=== PATIENT | male | born 1960 | race Caucasian/White ===

== ENCOUNTER → 2016-09-18 | Outpatient (CLI) | payer OTHER ==
[2016-09-18 13:43] LABS: BASO % 0 % (0-3); EOS % 1 % (0-3); HEMATOCRIT 46.8 % (39.0-53.0); HEMOGLOBIN 15.8 g/dL (13.0-17.5); LYMPH # 1.6 x10^3/uL (1.0-4.8); LYMPH % 23 % (24-48); MEAN CORPUSCULAR HEMOGLOBIN 30 pg (25-35); MEAN CORPUSCULAR HGB CONC 34 g/dL (31-37); MEAN CORPUSCULAR VOLUME 89 fL (79-100); MONO % 10 % (0-9); NEUT % 65 % (31-73); PLATELET COUNT 252 x10^3/uL (140-400); RED BLOOD COUNT 5.25 x10^6/uL (4.30-5.70); RED CELL DISTRIBUTION WIDTH 12.7 % (11.5-14.5); WHITE BLOOD COUNT 6.9 x10^3/uL (4.0-11.0)
[2016-09-18 14:01] LABS: ALBUMIN 4.4 g/dL (3.4-5.0); ALBUMIN/GLOBULIN RATIO 1.1 (1.0-1.7); CALCIUM 9.8 mg/dL (8.5-10.1); CREATININE 0.9 mg/dL (0.7-1.3); POTASSIUM 4.4 mmol/L (3.5-5.1); TOTAL BILIRUBIN 0.7 mg/dL (0.2-1.0); TOTAL PROTEIN 8.5 g/dL (6.4-8.2)
[2016-09-18 14:03] LABS: CHOLESTEROL/HDL RATIO 5.7
== END | disposition home or self-care (01) ==
LOC: LAB 13:20
PROVIDERS: ATTEND Family Medicine
DX: Z12.5 Encounter for screening for malignant neoplasm of prostate (principal); I10 Essential (primary) hypertension
CPT/HCPCS: 36415; 80053; 80061; 85027; G0103

== ENCOUNTER → 2016-12-25 | Outpatient (CLI) | payer OTHER ==
--- NOTE | 2016-12-25 11:47 | KCIC ---
MR LUMBAR SPINE Indication: Low back pain and right lower extremity radiculopathy Technique: Sagittal T2, sagittal STIR, and sagittal T1-weighted images were obtained. Additional axial T1 and T2 weighted imaging was also performed. FINDINGS: There is grade 1 anterolisthesis of L4 and L5. Alignment is otherwise within normal limits. There is no compression fracture or deformity. Overall bone marrow signal is within normal limits. The conus terminates normally at the level of T12. Visualized intra-abdominal contents are within normal limits. L5-S1 there is moderate disc height loss. There is also mild facet hypertrophy. The combination of these findings result in osteophyte encroachment into the foramen with moderate bilateral foraminal narrowing. Correlate for possible L5 radiculopathy symptoms. At L4-L5 there is moderate facet arthropathy with grade 1 degenerative anterolisthesis. There is also a central disc protrusion. Comminution of these findings results in moderate to severe central spinal stenosis. There is also moderate bilateral foraminal stenosis worse on the right an severe right lateral recess stenosis. Correlate for right L4 or L5 radiculopathy symptoms. At L3-L4 there is moderate disc height loss and a small broad-based disc bulge but no spinal stenosis. At L2-L3 there is no spinal stenosis. IMPRESSION: Degenerative disc and facet disease greatest at L4-L5 where there is grade 1 degenerative anterolisthesis and a disc protrusion which results in [id number] central spinal stenosis and also right foraminal lateral recess stenosis. This seems most probable for right L4 or L5 radiculopathy symptoms. Moderate bilateral foraminal stenosis at L5-S1. Other less severe degenerative change is present as above. Electronically signed by: Angel Wick MD (12/25/2016 11:44 AM)
== END | disposition home or self-care (01) ==
LOC: KCIC MRI 10:34
PROVIDERS: ATTEND Family Medicine
DX: M48.07 Spinal stenosis, lumbosacral region (principal); M54.16 Radiculopathy, lumbar region; M54.40 Lumbago with sciatica, unspecified side
CPT/HCPCS: 72148

== ENCOUNTER → 2017-01-11 | Outpatient (CLI) | payer OTHER ==
[~2017-01-11] MED LIST: ACET325T9 PO; IOHEXOL 180 MG/ML 10 ML VIAL. ONE; LISI-334 PO; NAPR220C4 PO; TADA5TAB PO; methylPREDNISolone ACETATE 40 MG/ML VIAL. ONE; methylPREDNISolone ACETATE 80 MG/ML VIAL. ONE
--- NOTE | 2017-01-12 01:35 | PAIN ---
DATE OF SERVICE: 01/11/2017 INITIAL CONSULTATION CHIEF COMPLAINT: Low back and right lower extremity pain. HISTORY OF PRESENT ILLNESS: This is a 56-year-old male who presents with history of pain since about middle of 10/2016. It is not a result of any specific injury or accident he is aware of, but he was using his inversion table as he has had some low back pain in the past, was getting off of the table and twisted his back to some extent and the pain became much worse in the low back, radiating into the right lower extremity. Initially, it was quite extreme and severe, but over the last few weeks, it has decreased in severity. It is still present and still rated as a 6 on a scale of 10 currently. It is much improved from where it was in the middle of 10/2016. The patient reports he has been taking Aleve and Tylenol, which help. He has also had some chiropractic treatment with this and is doing the inversion table still and doing some exercises daily. The patient reports it is an aching pain and numbness with radiating pain into the right lower extremity, intermittent in intensity, but always present, radiating from the low back and the right posterior gluteus, lateral thigh, anterior thigh, posterior, lateral and medial lower leg to the ankle and sometimes into the sole of the foot. The patient reports his disability rating from 0 to 10, 10 being the worst, is a 5 with family and home responsibilities and recreation, 3 with social activity and sexual behavior, 6 with occupation and life support activities, and 2 with self-care activities. The patient reports it is awakening him from sleep about 2-3 times at night, especially when he lies on his right side. It does not affect his bowel or bladder control, but it does affect his ability to walk and stand. It is much worse with standing and walking, better with sitting or lying down when he stays off his right side. The patient reports no symptoms on the left side, no complete loss of motor function, but significant fatigability with the right leg with activity, especially walking. PAST MEDICAL HISTORY: Significant for hearing loss, parathyroid syndrome, hypertension, pericarditis, viral meningitis, arthritis. PAST SURGICAL HISTORY: Previous surgeries include undescended testicle in 1965; in 1964, umbilical hernia repair; in 1977, tonsillectomy; in 1995, left anterior cruciate ligament repair; in 2001, cholecystectomy; in 2008, parathyroid tumor excision. CURRENT MEDICATIONS: Include acetaminophen, Aleve, lisinopril, and Cialis. ALLERGIES: THE PATIENT IS ALLERGIC TO IV CONTRAST DYE. HE HAD A REACTION A CHILD DURING AN IVP, BUT HAS HAD SEVERAL INJECTIONS OF IV DYE SINCE THEN WITHOUT ANY DIFFICULTIES OR REACTIONS BY HIS REPORT. FAMILY HISTORY: Significant for hypertension and heart disease. SOCIAL HISTORY: The patient drinks alcohol 2-3 times a week on an average. He does not smoke. He is , lives with his spouse. 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 REVIEW OF SYSTEMS: The patient's review of systems is positive for those items mentioned in the history of present illness. All systems are reviewed and otherwise negative. It is complete, full and well documented on the patient's chart. PHYSICAL EXAMINATION: VITAL SIGNS: Today, the patient's blood pressure is /104, pulse 70, respirations 18, temperature 97.9 degrees Fahrenheit. Height is 6 feet 3 inches, weight is 229 pounds. GENERAL: The patient is awake, alert, oriented, appropriate, very pleasant demeanor. The patient is accompanied by his spouse. HEENT: Shows normocephalic and atraumatic. Extraocular movements are intact and symmetrical. Oral cavity shows mucous membranes are moist and pink. Dentition is intact. NECK: Shows anterior throat supple without palpable lymphadenopathy noted. Swallow reflex is symmetrical. CHEST: Shows normal on inspection. Breath sounds are clear to auscultation bilaterally. HEART: Shows S1 and S2 clear. ABDOMEN: Soft, nontender, nondistended. No palpable organomegaly. No rebound or guarding demonstrated. BACK: Shows spine grossly in the midline. Normal-appearing cervical lordotic curvature, thoracic kyphotic curvature, and lumbar lordotic curvature. The patient's paraspinous musculature in the lumbar distribution shows symmetrical on inspection; with palpation, it shows some moderate tenderness with palpation bilaterally, but only diffusely in the middle and low lumbar distribution, slightly more on the right than the left, but it appears roughly symmetrical. Muscle girth is normal with palpation. No atrophy or hypertrophy. The patient shows no tenderness over the spinous processes, sacrum or sacroiliac regions. The patient shows good rotational motion bilaterally in the lumbar spine, both laterally greater than 10 degrees right and left as well as extension greater than 10 degrees, forward flexion to 45 degrees without exacerbation of pain. EXTREMITIES: Lower extremities show deep tendon reflexes at 2+ in the patellar and 1+ tendo calcaneus tendons and equal. Motor exam is strong with 5/5 dorsiflexion, extension, quadriceps and hamstring flexion and symmetrical. Slight decrease in sharp and dull discrimination of the right foot on the dorsum and otherwise intact sharp and dull discrimination bilaterally. Peripheral pulses are 1+ posterior tibial and dorsalis pedis pulses. No peripheral edema is noted. No clubbing. No cyanosis. Lower extremities are warm and dry to touch, equal in color and appearance. Straight leg raise noted to be slightly positive on the right at about 40 degrees, decreased with knee flexion, left side is negative. Gaenslen's and Rafael's maneuvers are negative bilaterally as well. The patient is able to stand, stand on his toes without difficulty or loss of balance, able to heel and toe walk for several steps without difficulty. He is walking with a normal-appearing gait for short distance in the office without any assistive devices such as canes or walkers. IMPRESSION: 1. This is a 56-year-old male with approximately 2-month history of increasing pain in the low back and right lower extremity, slightly decreased on its own since initial presentation in 10/2016, but with significant radicular pains in the right leg. 2. MRI scan of the lumbar spine as noted with L4-L5 moderate facet hypertrophy and grade 1 degenerative anterolisthesis, central disk protrusion, resulting in [id number] central spinal stenosis and moderate bilateral foraminal stenosis, worse on the right and severe right lateral recess stenosis. 3. History of arthritis. 4. History of hypertension and pericarditis. PLAN: Options were discussed with the patient including conservative medical management, continued physical therapies, interventional technique. He would like to pursue with interventional techniques. We discussed a lumbar epidural steroid injection using description as well as anatomical models to describe the procedure. Risks were then discussed including but not limited to bleeding, infection, possibility of epidural hematoma, subsequent neurologic compromise, dural puncture, headaches, spinal cord and/or nerve damage, side effects of steroid medication and poor results regarding pain control. The patient understands and wishes to proceed. The patient will return to the clinic in approximately 2 weeks for followup. He was counseled as to return appointment, activity level and side effects to be aware of. DIAGNOSIS: Lumbar radiculopathy with lumbar spinal stenosis and degenerative disk disease. PROCEDURES: Lumbar epidural steroid injection in translaminar approach at the L4-L5 level using C-arm fluoroscopic guidance under sterile prep and drape using local anesthetic. MEDICATION INJECTED: Depo-Medrol 120 mg plus 10 mL of preservative-free normal saline and 2 mL of Isovue for contrast. CONDITION AT DISCHARGE: Stable. The patient tolerated the procedure well, had no complications. DESTINEE MURPHY MD DR: CONSTANTINO/cira JOB#: [id number] / [id number] JEFFY Delgado MD
== END | disposition home or self-care (01) ==
LOC: PNCL 07:59
PROVIDERS: ATTEND Anesthesiology
DX: M51.16 Intervertebral disc disorders with radiculopathy, lumbar region (principal); M48.06 Spinal stenosis, lumbar region; H91.90 Unspecified hearing loss, unspecified ear; E21.5 Disorder of parathyroid gland, unspecified; I10 Essential (primary) hypertension; I31.9 Disease of pericardium, unspecified; A87.9 Viral meningitis, unspecified; M19.90 Unspecified osteoarthritis, unspecified site; Z90.49 Acquired absence of other specified parts of digestive tract
CPT/HCPCS: 62323; J1030; J1040

== ENCOUNTER → 2017-02-05 | Outpatient (CLI) | payer OTHER | END | disposition home or self-care (01) | LOC: PNCL 14:41 | PROVIDERS: ATTEND Anesthesiology | DX: M51.16 Intervertebral disc disorders with radiculopathy, lumbar region (principal); M48.06 Spinal stenosis, lumbar region | CPT/HCPCS: 62323; J1030; J1040 ==

== ENCOUNTER → 2017-03-20 | Outpatient (CLI) | payer OTHER ==
--- NOTE | 2017-03-20 12:03 | PAIN ---
DATE OF SERVICE: 03/20/2017 PROGRESS NOTE FOR PAIN CLINIC DIAGNOSES: Lumbar radiculopathy with lumbar degenerative disk disease and lumbar spinal stenosis. HISTORY OF PRESENT ILLNESS: The patient is a 56-year-old male who returns for followup status post lumbar epidural steroid injection x 2, last seen 02/05/2017. The patient did very well and reports about 90% improvement for the first 3 weeks or so. Then the pain is beginning to return gradually in the low back and right lower extremity, as it was previously in the low back, posterior gluteus, right lateral thigh, medial thigh and anterior thigh and also some weakness, numbness and tingling in the right leg, with radiation into the lateral thigh and medial thigh below the knee. The patient reports it is a 7 on a scale of 10 at its worst, 3 and sounds like a 5. It is aching, tingling, radiating in the right leg. Again improved twice with repeat results with decrease in pain, but returning after about 3 weeks to near baseline level. The patient reports no new motor or sensory deficits, no new bowel or bladder incontinence or other complaints. PHYSICAL EXAMINATION: VITAL SIGNS: The patient's blood pressure is 150/101, pulse 77, respirations are 18 and temperature 97.9 degrees Fahrenheit. Weight is 225 pounds, height is 6 feet 3 inches. GENERAL: The patient is awake, alert, oriented and appropriate, with very pleasant demeanor. HEENT EXAMINATION: Head shows normocephalic, atraumatic. Extraocular movements are intact and symmetrical. Oral cavity, mucous membranes are moist and pink. Dentition is intact. NECK: Shows anterior throat supple, without palpable lymphadenopathy noted. Swallow reflex is symmetrical. CHEST: Shows normal on inspection. Breath sounds clear to auscultation bilaterally. HEART: Shows S1 and S2 clear. ABDOMEN: Soft, nontender and nondistended. No palpable organomegaly. No rebound or guarding demonstrated. BACK: Shows spine grossly midline. Lumbar paraspinous muscle shows symmetrical with inspection. On palpation, shows some moderate tenderness with palpation in the bilateral paraspinous musculature, but only diffusely. No tenderness over the sacrum or sacroiliac regions. The patient shows good rotational motion of the lumbar spine, both laterally as well as extension and flexion. LOWER EXTREMITIES: Show deep tendon reflexes 2+ in the patellar and tendo calcaneus tendons are 1+. Motor exam is strong with 5/5 dorsiflexion, extension, quadriceps and hamstring flexion and equal. The patient's gait is normal, without significant favoring and not using any assistive devices. Options were discussed with the patient. The patient's old chart was reviewed as his current medication regimen updated. Current review of systems updated today as well. We will proceed with third in the series of lumbar epidural steroid injection with fluoroscopic guidance. Risks were again discussed including, but not limited to, bleeding, infection, possibility of epidural hematoma, subsequent neurologic compromise, dural puncture, headaches, spinal cord and/or nerve damage, side effects of steroid medication and poor results regarding pain control. The patient understands and wishes to proceed. The patient will return to the clinic in approximately 2 weeks for followup, was counseled on return appointment, activity level and side effects to be aware of. DIAGNOSES: Lumbar radiculopathy with lumbar spinal stenosis and lumbar degenerative disk disease. PROCEDURES: Lumbar epidural steroid injection in translaminar approach at the L4-L5 level using C-arm fluoroscopic guidance under sterile prep and drape using local anesthetic. MEDICATIONS INJECTED: A total of 120 mg of Depo-Medrol plus 10 mL of preservative-free normal saline and 2 mL Isovue for contrast. CONDITION AT DISCHARGE: Stable. The patient tolerated the procedure well, had no complications. DESTINEE MURPHY MD DR: CONSTANTINO/cira JOB#: [id number] / [id number]
== END | disposition home or self-care (01) ==
LOC: PNCL 08:36
PROVIDERS: ATTEND Anesthesiology
DX: M51.16 Intervertebral disc disorders with radiculopathy, lumbar region (principal); M48.06 Spinal stenosis, lumbar region
CPT/HCPCS: 62323; J1030; J1040

== ENCOUNTER → 2018-06-11 | Outpatient (CLI) | payer OTHER ==
[~2018-06-11] MED LIST changes: -IOHEXOL 180 MG/ML 10 ML VIAL. ONE; -methylPREDNISolone ACETATE 40 MG/ML VIAL. ONE; -methylPREDNISolone ACETATE 80 MG/ML VIAL. ONE
[2018-06-11 09:42] LABS: ALBUMIN 4.1 g/dL (3.4-5.0); ALBUMIN/GLOBULIN RATIO 1.2 (1.0-1.7); CALCIUM 8.9 mg/dL (8.5-10.1); CHOLESTEROL/HDL RATIO 4.7; CREATININE 0.8 mg/dL (0.7-1.3); GFR 99.3; POTASSIUM 4.1 mmol/L (3.5-5.1); TOTAL BILIRUBIN 0.5 mg/dL (0.2-1.0); TOTAL PROTEIN 7.4 g/dL (6.4-8.2)
[2018-06-11 09:44] LABS: BASO % 0 % (0-3); EOS # 0.1 x10^3/uL (0.0-0.7); EOS % 3 % (0-3); HEMATOCRIT 41.7 % (39.0-53.0); HEMOGLOBIN 14.5 g/dL (13.0-17.5); LYMPH # 1.3 x10^3/uL (1.0-4.8); LYMPH % 26 % (24-48); MEAN CORPUSCULAR HEMOGLOBIN 31 pg (25-35); MEAN CORPUSCULAR HGB CONC 35 g/dL (31-37); MEAN CORPUSCULAR VOLUME 89 fL (79-100); MONO # 0.5 x10^3/uL (0.0-1.1); MONO % 9 % (0-9); NEUT # 3.3 x10^3uL (1.8-7.7); NEUT % 63 % (31-73); PLATELET COUNT 242 x10^3/uL (140-400); RED BLOOD COUNT 4.67 x10^6/uL (4.30-5.70); RED CELL DISTRIBUTION WIDTH 12.8 % (11.5-14.5); WHITE BLOOD COUNT 5.3 x10^3/uL (4.0-11.0)
== END | disposition home or self-care (01) ==
LOC: LAB 09:05
PROVIDERS: ATTEND Family Medicine
DX: Z12.5 Encounter for screening for malignant neoplasm of prostate (principal); I10 Essential (primary) hypertension
CPT/HCPCS: 36415; 80053; 80061; 85025; G0103

== ENCOUNTER → 2019-01-13 | Outpatient (CLI) | payer OTHER ==
[~2019-01-13] MED LIST changes: +IOHEXOL 180 MG/ML 10 ML VIAL. ONE; +methylPREDNISolone ACETATE 40 MG/ML VIAL. ONE; +methylPREDNISolone ACETATE 80 MG/ML VIAL. ONE
--- NOTE | 2019-01-13 09:07 | PAIN ---
DATE OF SERVICE: 01/13/2019 PROGRESS NOTE FOR PAIN CLINIC DIAGNOSES: Lumbar radiculopathy with lumbar spinal stenosis with lumbar degenerative disk disease. HISTORY OF PRESENT ILLNESS: This is a 58-year-old male who returns for followup status post lumbar epidural steroid injections, last seen in 02/2017. The patient did very well with about 90% improvement. The patient reports he has done quite well for the past almost 2 years but the pain has returned in the low back and right lower extremity, mostly in the posterior lateral thigh, lateral anterior thigh, anterior medial thigh, medial lower leg with some weakness in his right foot and occasionally will catch his right toes when he is walking over the past month or two. The patient reports otherwise he is doing fairly well, but the pain is returning worse with being on his feet and he has been working quite a bit, but for the past few months increasing pain as well in the right leg and with weakness and with some minor foot drop by description. The patient reports the pain is 8 on a scale of 10 at its worst over the past week, 6 on average, 5 at its least and is a 5 today. The patient reports it is aching, becoming more radiating, more constant in the right leg and low back. The patient reports no new motor or sensory deficits, no new bowel or bladder incontinence, does not awaken him from sleep at night, much better with sitting or lying down, worse with walking and standing. PHYSICAL EXAMINATION: VITAL SIGNS: The patient's blood pressure 160/103, pulse 70, respirations 18, temperature 98.1 degrees Fahrenheit, height is 6 feet 3 inches, weight is 205 pounds. GENERAL: The patient is awake, alert, oriented, appropriate, very pleasant demeanor. HEENT: Shows normocephalic, atraumatic. Extraocular movements are intact and symmetrical. The patient wears eye glasses. Oral cavity: Mucous membranes moist and pink. Dentition is intact. NECK: Shows anterior throat supple without palpable lymphadenopathy noted. Swallow reflex symmetrical. CHEST: Shows normal with inspection. Breath sounds clear to auscultation bilaterally. HEART: Shows S1, S2 clear. No murmurs auscultated. ABDOMEN: Soft, nontender, nondistended. No palpable organomegaly is noted. No rebound or guarding demonstrated. BACK: Shows spine grossly in the midline. Normal appearing thoracic kyphosis and lumbar lordotic curvature. Lumbar paraspinous muscle shows symmetrical on inspection and palpation has some moderate tenderness diffusely bilaterally, but only diffusely without radiation. The patient has good rotational motion of lumbar spine, both laterally as well as extension and flexion without difficulty. EXTREMITIES: Lower extremities show deep tendon reflexes at 2+ in the patellar, 1+ tendo-calcaneus tendons. Motor exam is strong with 5/5 dorsiflexion, extension, quadriceps and hamstring flexion and symmetrical. Peripheral pulses are 1+ posterior tibia. No peripheral edema is noted bilaterally. Options were discussed with the patient. The patient's old chart was reviewed as his current medication regimen updated. Current review of systems updated today as well. We will proceed with a lumbar epidural steroid injection today with fluoroscopic guidance. Risks were again discussed including, but not limited to bleeding, infection, possibility of epidural hematoma, subsequent neurologic compromise, dural puncture, headaches, spinal cord and/or nerve damage, side effects of steroid medication and poor results regarding pain control. The patient understands and wished to proceed. The patient will return to the clinic in approximately 2 weeks for followup. He was counseled as to the return appointment, activity level and side effects to be aware of. DIAGNOSES: Lumbar radiculopathy with lumbar spinal stenosis, lumbar degenerative disk disease. PROCEDURE: Lumbar epidural steroid injection, translaminar approach L4-L5 level using C-arm fluoroscopic guidance under sterile prep and drape using local anesthetic. MEDICATION INJECTED: A total of 120 mg Depo-Medrol plus 10 mL of preservative-free normal saline. CONDITION AT DISCHARGE: Stable. The patient tolerated procedure well, had no complications. DESTINEE MURPHY MD DR: CONSTANTINO/cira JOB#: [id number] / [id number]
== END ==
LOC: PNCL 07:33
PROVIDERS: ATTEND Anesthesiology
DX: M51.16 Intervertebral disc disorders with radiculopathy, lumbar region (principal); M48.061 Spinal stenosis, lumbar region without neurogenic claudication; M54.5 Low back pain
CPT/HCPCS: 62323; J1030; J1040; Q9965

== ENCOUNTER → 2019-02-10 | Outpatient (CLI) | payer OTHER ==
--- NOTE | 2019-02-10 09:47 | PAIN ---
DATE OF SERVICE: 02/10/2019 DIAGNOSES: Lumbar radiculopathy with lumbar degenerative disk disease, lumbar spinal stenosis. HISTORY OF PRESENT ILLNESS: The patient is a 58-year-old male who returns for followup status post lumbar epidural steroid injection x 1, last seen 01/13/2019. The patient did very well with about 80% improvement for the first few weeks. The patient reports pain is returning in the low back, right lower extremity, posterior thigh, posterior lateral thigh, medial thigh, anterior thigh, medial lower leg. The patient reports it is an aching pain, is becoming more radiating, worse with walking, standing, change in positions, initially was doing much better, increased his activity with walking, work activities, household activities and sleeping better. The patient reports it does not awaken him from sleep currently. Much worse with standing, walking or sitting in a car with driving for a prolonged period. The patient reports it is aching pain, is radiating to the low back and right leg, rates it 8 on a scale of 10 at its worst in the past week, 6 on average, 3 at its least and is a 6 today. The patient reports no new motor or sensory deficits, no new bowel or bladder incontinence or other complaints. PHYSICAL EXAMINATION: VITAL SIGNS: The patient's blood pressure 171/109, pulse 73, respirations 18, temperature 98.2 degrees Fahrenheit, height 6 feet 3 inches, weighs 210 pounds. GENERAL: The patient is awake, alert, oriented, appropriate, very pleasant demeanor. HEENT: Head shows normocephalic, atraumatic. Extraocular muscles are intact and symmetrical. Oral cavity, mucous membranes are moist and pink. Dentition is intact. NECK: Shows anterior throat supple without palpable lymphadenopathy noted. Swallow reflex symmetrical. CHEST: Shows normal with inspection. Breath sounds clear to auscultation bilaterally. HEART: Shows S1, S2 clear. ABDOMEN: Soft, nontender, nondistended. No palpable organomegaly is noted. No rebound or guarding demonstrated. BACK: Shows spine grossly in the midline. Normal-appearing thoracic kyphosis and lumbar lordotic curvature. Lumbar paraspinous shows symmetrical on inspection, on palpation shows some moderate tenderness diffusely in the low lumbar distribution, but only diffusely without radiation, is symmetrical in the upper, middle and lower distribution of paraspinous muscles. EXTREMITIES: Lower extremities show deep tendon reflexes at 2+ in the patellar, 1+ tendo-calcaneus tendons are equal. Motor exam is strong with 5/5 dorsiflexion, extension, quadriceps and hamstring flexion symmetrical. Peripheral pulses are 1+ posterior tibia. No peripheral edema is noted. Options were discussed with the patient. The patient's old chart was reviewed as his current medication regimen updated, current review of systems updated today as well. We will proceed with a second lumbar epidural steroid injection today with fluoroscopic guidance. Risks were again discussed including, but not limited to bleeding, infection, possibility of epidural hematoma and subsequent neurologic compromise, dural puncture, headaches, spinal cord and/or nerve damage, side effects of steroid medication and poor results regarding pain control. The patient understands and wished to proceed. The patient will return to clinic in approximately 2 weeks for followup, was counseled on return appointment, activity level and side effects to be aware of. Diagnoses, lumbar radiculopathy with lumbar degenerative disk disease, lumbar spinal stenosis. PROCEDURE: Lumbar epidural steroid injection, translaminar approach L4-L5 levels using C-arm fluoroscopic guidance under sterile prep and drape using local anesthetic. MEDICATION INJECTED: A total of 120 mg Depo-Medrol plus 10 mL of preservative-free normal saline and 2 mL of Isovue for contrast. NO CONTRAST, THE PATIENT HAS ALLERGY. CONDITION AT DISCHARGE: Stable. The patient tolerated procedure well, had no complications. DESTINEE MURPHY MD DR: CONSTANTINO/cira JOB#: [id number] / [id number]
== END ==
LOC: PNCL 08:15
PROVIDERS: ATTEND Anesthesiology
DX: M51.16 Intervertebral disc disorders with radiculopathy, lumbar region (principal); M48.061 Spinal stenosis, lumbar region without neurogenic claudication
CPT/HCPCS: 62323; J1030; J1040; Q9965

== ENCOUNTER → 2019-08-01 | Outpatient (CLI) | payer OTHER ==
[~2019-08-01] MED LIST changes: -IOHEXOL 180 MG/ML 10 ML VIAL. ONE; -methylPREDNISolone ACETATE 40 MG/ML VIAL. ONE; -methylPREDNISolone ACETATE 80 MG/ML VIAL. ONE
[2019-08-01 11:15] LABS: BASO % 1 % (0-3); EOS # 0.1 x10^3/uL (0.0-0.7); EOS % 1 % (0-3); HEMATOCRIT 45.2 % (39.0-53.0); HEMOGLOBIN 15.5 g/dL (13.0-17.5); LYMPH % 17 % (24-48); MEAN CORPUSCULAR HEMOGLOBIN 31 pg (25-35); MEAN CORPUSCULAR HGB CONC 34 g/dL (31-37); MEAN CORPUSCULAR VOLUME 90 fL (79-100); MONO # 0.5 x10^3/uL (0.0-1.1); MONO % 9 % (0-9); NEUT # 4.4 x10^3/uL (1.8-7.7); NEUT % 72 % (31-73); PLATELET COUNT 249 x10^3/uL (140-400); RED BLOOD COUNT 5.02 x10^6/uL (4.30-5.70); RED CELL DISTRIBUTION WIDTH 12.6 % (11.5-14.5); WHITE BLOOD COUNT 6.1 x10^3/uL (4.0-11.0)
[2019-08-01 11:44] LABS: ALBUMIN 4.2 g/dL (3.4-5.0); ALBUMIN/GLOBULIN RATIO 1.4 (1.0-1.7); CREATININE 0.9 mg/dL (0.7-1.3); GFR 86.1; POTASSIUM 3.9 mmol/L (3.5-5.1); TOTAL PROTEIN 7.3 g/dL (6.4-8.2)
[2019-08-02 00:07] LABS: HEMOGLOBIN A1C 4.9 % (4.8-5.6)
== END | disposition home or self-care (01) ==
LOC: LAB 10:45
PROVIDERS: ATTEND Family Medicine
DX: Z12.5 Encounter for screening for malignant neoplasm of prostate (principal); I10 Essential (primary) hypertension; E78.00 Pure hypercholesterolemia, unspecified; R73.09 Other abnormal glucose
CPT/HCPCS: 36415; 80053; 80061; 83036; 84153; 85025; G0103

== ENCOUNTER 2020-06-22 18:18 | Emergency (ER) | payer OTHER ==
[~2020-06-22] VITALS: Ht 190.5 cm; Wt 102.0 kg
--- NOTE | 2020-06-22 18:25 | PHYS DOC ---
General Adult EDM: Chief Complaint: CHEST WALL PAIN HPI: HPI: 59-year-old male past medical history of hypertension presents to the ED with complaints of constant, waxing/waning, nonradiating, left-sided focal tenderness to palpation, chest wall pain (pressure and sharp), aggravated with movements and respirations that started Sunday. Pt cannot recall any triggering event but does report heavy lifting of 50 pound boxes earlier that day his symptoms started. 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 States he's had a disc herniation and this hurts just as bad. Little relief with tylenol, aleve, lido patches with decreased sleep last night. States pain isn't as bad as it was when it started. Takes lisinopril 20 mg daily but forgot to take it today. Blood pressure usually runs in the 140s/90s. H/o pericarditis (HENDRIX) s/p cardiac cath in early . Reports h/o treated lyme disease in early diagnosed by infectious disease and viral meningitis. Reports intermittnet prescriptions for doxycycline for lyme disease complications. Denies any recent URI or blunt chest wall trauma. Father with h/o tobacco dependence, atrial fibrillation and lung cancer. Reports grandfather passed in his 50s, cause was heart related. No known FH sudden under 50, connective tissue disorder, aortic disease, arrhythmia or ACS. H/o anaphylaxis with UV pyelogram when pt was a kid. No alcohol/drug use. PMD-Dr. Jeffy Mendoza. Review of Systems: Review of Systems: Constitutional: Denies fever or chills. [] Eyes: Denies change in visual acuity. [] HENT: Denies nasal congestion or sore throat. [] Respiratory: Denies cough or shortness of breath, hemoptysisi Cardiovascular: Denies edema, syncope GI: Denies abdominal pain, nausea, vomiting, bloody stools or diarrhea. [] : Denies dysuria. [] Musculoskeletal: Denies back pain or joint pain. [] Integument: Denies rash. [] Neurologic: Denies headache, neck stiffness, focal weakness or sensory changes. [] Endocrine: Denies polyuria or polydipsia. [] Lymphatic: Denies swollen glands. [] Psychiatric: Denies depression or anxiety. [] Heart Score: Risk Factors: Risk Factors: DM, Current or recent (<one month) smoker, HTN, HLP, family history of CAD, obesity. Risk Scores: Score 0 - 3: 2.5% MACE over next 6 weeks - Discharge Home Score 4 - 6: 20.3% MACE over next 6 weeks - Admit for Clinical Observation Score 7 - 10: 72.7% MACE over next 6 weeks - Early Invasive Strategies Physical Exam: PE: Constitutional: Hypertensive, non-toxic appearance, uncomfortable HENT: Normocephalic, atraumatic, Eyes: EOMI, conjunctiva normal, no discharge. Neck: Normal range of motion, supple, Cardiovascular: S1/2 present, regular rhythm, no murmurs Lungs & Thorax: Speaking in full sentences, bilateral equal chest rise, no tachypnea or increased work of breathing, no wheezing/rales, ttp over L T6-9 rib cartilages Abdomen: soft, no epigastric or RUQ ttp tenderness, no rigidity or guarding Skin: Warm, dry, no erythema, no rash. [] Extremities: No tenderness, no cyanosis, no edema Neurologic: Alert and oriented X 3, normal motor function, normal sensory function, no focal deficits noted. [] Psychologic: Affect normal, judgement normal, mood normal. [] EKG: EKG: Sinus rhythm at 93 bpm, left axis deviation, QTC 440, biphasic T waves on furth er T wave in lead III, no ST elevations or ST depressions, no pathologic Q waves (nonpathologic Q waves in 1 and aVL) Radiology/Procedures: Radiology/Procedures: []IMAGING REPORT Signed PATIENT: CONSTANZA NGUYEN ACCOUNT: [id number] : 1960 LOCATION: ER AGE: 59 SEX: M EXAM STATUS: REG ER ORD. PHYSICIAN: LILIAM CROCKER DO REASON: left cp PROCEDURE: CHEST PA & LATERAL Exam: Chest 2 views INDICATION: Left chest pain TECHNIQUE: Frontal and lateral views the chest Comparisons: None FINDINGS: The cardiomediastinal silhouette and pulmonary vessels are within normal limits. The lung and pleural spaces are clear. IMPRESSION: No acute cardiopulmonary process. Electronically signed by: Krish Swanson MD (06/22/2020 7:07 PM) [facility] DICTATED and SIGNED BY: KRISH SWANSON MD DATE: 06/22/[id number] 0 IMAGING REPORT Signed PATIENT: CONSTANZA NGUYEN ACCOUNT: [id number] : 1960 LOCATION: ER AGE: 59 SEX: M EXAM STATUS: REG ER ORD. PHYSICIAN: LILIAM CROCKER DO REASON: epigastric/chest pain, r/o dissection PROCEDURE: CT ANGIO CHEST ABD PELVIS Exam: CT of chest, abdomen and pelvis without and with contrast INDICATION: Epicardial, chest pain TECHNIQUE: Sequential axial images through the chest, abdomen and pelvis obtained before and after the administration of 90 mL of Omni 350 IV contrast. Sagittal and coronal reformatted images were reconstructed from the axial data and reviewed. 3-D reformatted images were reconstructed from the axial data and reviewed. Comparisons: Chest x-ray same day FINDINGS: Visualized portions of the thyroid are unremarkable. No enlarged mediastinal lymph nodes are identified. Heart size is normal. No pericardial effusion. Thoracic aorta has a normal course and caliber. Pulmonary artery is not enlarged. Airways are patent. No consolidation or pneumothorax. Strandy opacities at the dependent portion lungs likely representing atelectasis. No pleural effusion or thickening. Diffuse hepatic steatosis. Spleen, pancreas, and adrenals are unremarkable. Gallbladder surgically absent. No perinephric inflammation or hydronephrosis. No renal or ureteral calculi are identified. Bladder is decompressed not well evaluated. Prostate is not enlarged. Abdominal aorta has a normal course and caliber. Abdominal vasculature is patent. No enlarged abdominal lymph nodes are identified. No suspicious osseous lesions or acute fractures. IMPRESSION: 1. No evidence for aortic aneurysm, dissection or intramural hematoma 2. Diffuse hepatic steatosis. Exposure: One or more of the following in the visualized dose reduction techniques were utilized for this examination: 1. Automated exposure control 2. Adjustment of the MA and/or KV according to patient size 3. Use of iterative of reconstructive technique Electronically signed by: Krish Swanson MD (06/22/2020 9:17 PM) [facility] DICTATED and SIGNED BY: KRISH SWANSON MD DATE: 06/22/[id number] 0 Course & Med Decision Making: Course & Med Decision Making Pertinent Labs and Imaging studies reviewed. (See chart for details) Concern for left anterior chest wall pain after increased physical activity with focal rib pain ttp - likely muscular strain vs costochondritis. Lyme carditis considered. Will dc home with steroid taper and abx. Strict ED return precautions were given for severe pain, back pain, typical chest pain including pressure heaviness tightness with nausea vomiting or diaphoresis or any other concerning symptoms. Encouraged urgent outpatient follow-up with PMD and cardiology, prn. Life-threatening processes were considered but are low suspicion at this time, given history and physical exam. Pt was educated on all prescription medications and adverse effects. All patient's questions were answered and pt was stable at time of discharge. Life/limb-threatening differential includes but is not limited to, acute myocardial infarction, aortic dissection, congestive heart failure, esophageal injury including rupture, surgical abdomen, arrhythmia, cardiomyopathy, myocarditis, pericarditis, peptic ulcer disease, pneumomediastinum, pneumonia, pneumothorax, pulmonary embolus, unstable angina, rib fracture, contusion, pericardial tamponade or effusion, pulmonary contusion I spoken with the patient and her caregivers. I explained the patient's condition, diagnoses and treatment plan based on the information available to me at this time. I have answered the patient and her caregiver's questions and addressed any concerns. The patient and her caregivers have a good understanding of patient's diagnosis, condition and treatment plan as can be expected at this point. Vital signs have been stable. Patient's condition is stable and appropriate for discharge from the emergency department. Patient will pursue further outpatient evaluation with primary care physician or other designated or consulting physician as outlined in the discharge instructions. The patient and/or caregivers are agreeable to this plan of care and follow-up instructions have been explained in detail. The patient and/or caregivers have received these instructions in written form and have expressed an understanding of the discharge instructions. The patient and/or caregivers are aware that any significant change of condition or worsening of symptoms should prompt immediate return to this or the closest emergency department or call to 911. Tono Disclaimer: Tono Disclaimer: This electronic medical record was generated, in whole or in part, using a voice recognition dictation system. Departure Departure Impression: Primary Impression: Anterior chest wall pain Additional Impression: Hepatic steatosis Disposition: DC HOME SELF CARE/HOMELESS Condition: STABLE Referrals: JEFFY MENDOZA MD (PCP) Patient Instructions: Chest Wall Pain Additional Instructions: FOLLOW UP WITH CARDIOLOGY: [facility] Address: [address] [address] EMERGENCY DEPARTMENT GENERAL DISCHARGE INSTRUCTIONS Thank you for coming to [facility] Emergency Department (ED) today and trusting us with you care. We trust that you had a positive experience in our Emergency Department. If you wish to speak to the department management, you may call the Director at [phone]. YOUR FOLLOW UP INSTRUCTIONS ARE FOLLOWS: 1. Do you have a private Doctor? If you do not have a private doctor, please ask for a resource list of physicians or clinics that may be able to assist you with follow up care. 2. The Emergency Physicain has interpreted your x-rays. The X-Ray specialist will also review them. If there is a change in the findings, you will be notified in 48 hours when at all possible. 3. A lab test or culture has been done, your results will be reviewed and you will be notified if you need a change in treatment. ADDITIONAL INSTRUCTIONS AND INFORMATION: 1. Your care today has been supervised by a physician who is specially trained in emergency care. Many problems require more than one evaluation for a complete diagnosis and treatment. We recommend that you schedule your follow up appointment as recommended to ensure complete treatment of you illness or injury. If you are unable to obtain follow up care and continue to have a problem, or if your condition worsens, we recommend that you return to the ED. 2. We are not able to safely determine your condition over the phone nor are we able to give sound medical advice over the phone. For these safety reasons, if you call for medical advice we will ask you to come to the ED for further evaluation. 3. If you have any questions regarding these discharge instructions please call the ED at [phone]. SAFETY INFORMATION: In the interest of safety, wellness, and injury prevention; we encourage you to wear your sealbelt, if you smoke; quite smoking, and we encourage family to use a protective helmet for bicycling and other sporting events that present an increased risk for head injury. IF YOUR SYMPTOMS WORSEN OR NEW SYMPTOMS DEVELOP, OR YOU HAVE CONCERNS ABOUT YOUR CONDITION; OR IF YOUR CONDITION WORSENS WHILE YOU ARE WAITING FOR YOUR FOLLOW UP APPOINTMENT; EITHER CONTACT YOUR PRIMARY CARE DOCTOR, THE PHYSICIAN WHOSE NAME AND NUMBER YOU WERE GIVEN, OR RETURN TO THE ED IMMEDIATELY. Scripts Doxycycline Hyclate (DOXYCYCLINE HYCLATE) 100 Mg Capsule 1 CAP PO BID for 14 Days, #28 CAP Prov: LILIAM CROCKER DO 06/22/20 Prednisone (PREDNISONE) 20 Mg Tablet 1 TAB PO see instructions for 12 Days, #14 TAB 0 Refills Take 2 tablets daily for 4 days, Then take 1 tablet daily for 4 days Then take 1/2 tablet daily for 4 days Prov: LILIAM CROCKER DO 06/22/20 LILIAM CROCKER DO Jun 22, 2020 18:25
[2020-06-22 18:52] LABS: BASO # 0.1 x10^3/uL (0.0-0.2); BASO % 1 % (0-3); EOS # 0.1 x10^3/uL (0.0-0.7); EOS % 0 % (0-3); HEMATOCRIT 38.6 % (39.0-53.0); HEMOGLOBIN 13.3 g/dL (13.0-17.5); LYMPH # 1.4 x10^3/uL (1.0-4.8); LYMPH % 11 % (24-48); MEAN CORPUSCULAR HEMOGLOBIN 31 pg (25-35); MEAN CORPUSCULAR HGB CONC 34 g/dL (31-37); MEAN CORPUSCULAR VOLUME 90 fL (79-100); MONO # 1.3 x10^3/uL (0.0-1.1); MONO % 11 % (0-9); NEUT # 9.7 x10^3/uL (1.8-7.7); NEUT % 77 % (31-73); PLATELET COUNT 212 x10^3/uL (140-400); RED BLOOD COUNT 4.29 x10^6/uL (4.30-5.70); WHITE BLOOD COUNT 12.5 x10^3/uL (4.0-11.0)
--- NOTE | 2020-06-22 19:10 | RAD ---
Exam: Chest 2 views INDICATION: Left chest pain TECHNIQUE: Frontal and lateral views the chest Comparisons: None FINDINGS: The cardiomediastinal silhouette and pulmonary vessels are within normal limits. The lung and pleural spaces are clear. IMPRESSION: No acute cardiopulmonary process. Electronically signed by: Krish Ramirez MD (06/22/2020 7:07 PM) NAYANA
[2020-06-22 19:20] LABS: CALCIUM 9.2 mg/dL (8.5-10.1); CREATININE 0.9 mg/dL (0.7-1.3); GFR 86.1; POTASSIUM 3.8 mmol/L (3.5-5.1)
[2020-06-22 19:26] LABS: ALBUMIN 3.9 g/dL (3.4-5.0); ALBUMIN/GLOBULIN RATIO 1.3 (1.0-1.7); TOTAL BILIRUBIN 1.5 mg/dL (0.2-1.0); TOTAL PROTEIN 6.8 g/dL (6.4-8.2)
[2020-06-22] MEDS ORDERED: LISINOPRIL 10 MG TABLET PO ONE (20:00)
[2020-06-22] MEDS ORDERED: DEXAMETHASONE SOD PHOS 20 MG/5 ML VIAL. IV ONE (20:00)
[2020-06-22] MEDS ORDERED: IOHEXOL 350 MG/ML 100 ML VIAL. IV ONE (20:15)
[2020-06-22] MEDS ORDERED: diphenhydrAMINE 50 MG/ML VIAL IVP ONE (20:15)
[2020-06-22] MEDS ORDERED: CONTRAST GIVEN. MC PRN (20:30)
--- NOTE | 2020-06-22 21:20 | RAD ---
Exam: CT of chest, abdomen and pelvis without and with contrast INDICATION: Epicardial, chest pain TECHNIQUE: Sequential axial images through the chest, abdomen and pelvis obtained before and after the administration of 90 mL of Omni 350 IV contrast. Sagittal and coronal reformatted images were reconstructed from the axial data and reviewed. 3-D reformatted images were reconstructed from the axial data and reviewed. Comparisons: Chest x-ray same day FINDINGS: Visualized portions of the thyroid are unremarkable. No enlarged mediastinal lymph nodes are identified. Heart size is normal. No pericardial effusion. Thoracic aorta has a normal course and caliber. Pulmonary artery is not enlarged. Airways are patent. No consolidation or pneumothorax. Strandy opacities at the dependent portion lungs likely representing atelectasis. No pleural effusion or thickening. Diffuse hepatic steatosis. Spleen, pancreas, and adrenals are unremarkable. Gallbladder surgically absent. No perinephric inflammation or hydronephrosis. No renal or ureteral calculi are identified. Bladder is decompressed not well evaluated. Prostate is not enlarged. Abdominal aorta has a normal course and caliber. Abdominal vasculature is patent. No enlarged abdominal lymph nodes are identified. No suspicious osseous lesions or acute fractures. IMPRESSION: 1. No evidence for aortic aneurysm, dissection or intramural hematoma 2. Diffuse hepatic steatosis. Exposure: One or more of the following in the visualized dose reduction techniques were utilized for this examination: 1. Automated exposure control 2. Adjustment of the MA and/or KV according to patient size 3. Use of iterative of reconstructive technique Electronically signed by: Krish Ramirez MD (06/22/2020 9:17 PM) [facility]
[2020-06-22 21:38] VITALS: BP 184/87
[2020-06-22] MEDS ORDERED: DOXY100C2 PO (21:44)
[2020-06-22] MEDS ORDERED: PRED20TA PO (21:44)
--- NOTE | 2020-06-23 10:07 | EKG ---
[facility] [address] [place] [address] Test Date: 2020-06-22 Test Time: 18:35:55 Pat Name: CONSTANZA NGUYEN Department: Room: Gender: M [employer]: : 1960 Requested By: LILIAM CROCKER Order Number: [id number] Reading MD: Measurements Intervals [place] Rate: 93 P: 38 OR: 176 QRS: -37 QRSD: 94 T: 30 QT: 352 QTc: 440 Interpretive Statements SINUS RHYTHM ABNORMAL LEFT AXIS DEVIATION LEFT ANTERIOR FASCICULAR BLOCK QRS(T) CONTOUR ABNORMALITY CONSIDER ANTEROSEPTAL MYOCARDIAL DAMAGE ABNORMAL ECG RI6.01 Compared to ECG 06/22/2020 18:32:29 T-wave abnormality no longer present
== END 2020-06-22 21:50 | disposition home or self-care (01) ==
LOC: ER 18:18
DX: K76.0 Fatty (change of) liver, not elsewhere classified (principal); R07.89 Other chest pain; I10 Essential (primary) hypertension
CPT/HCPCS: 36415; 71046; 71275; 74174; 80053; 83690; 84484; 85025; 85379; 93005; 96374; 96375; 99285; J1100; J1200; Q9967

== ENCOUNTER → 2020-10-06 | Outpatient (CLI) | payer OTHER ==
[~2020-10-06] MED LIST changes: +DOXY100C2 PO; -LISI-334 PO; +LISI20TA18 PO; +PRED20TA PO
--- NOTE | 2020-10-06 10:23 | RAD ---
US CHEST History:Reason: Left Chest Wall Mass / Spl. Instructions: / History: Comparison: CT June 22, 2020 Technique: Sonographic examination of the left anterior chest wall Findings: Irregular complicated fluid collection within the left anterior chest wall subcutaneous tissues. The area measures approximately 4.5 x 5.5 x 2.7 cm. There is adjacent subcutaneous edema. Impression: 1. Irregular complicated fluid collection within the left anterior chest wall subcutaneous tissues w ith adjacent edema, may relate to hematoma if history of trauma or phlegmon/developing abscess if con cern for infection. Recommend short-term ultrasound follow-up. Electronically signed by: Anthony Zarate DO (10/06/2020 10:21 AM) [id number]
== END ==
LOC: US 08:18
PROVIDERS: ATTEND Nurse Practitioner Gerontology
DX: R22.2 Localized swelling, mass and lump, trunk (principal)
CPT/HCPCS: 76604

== ENCOUNTER → 2021-02-17 | Outpatient (CLI) | payer OTHER ==
[~2021-02-17] MED LIST changes: -DOXY100C2 PO; +DOXY100C3 PO
== END ==
LOC: LAB 10:55
PROVIDERS: ATTEND Internal Medicine Pulmonary Disease
DX: U07.1 COVID-19 (principal)
CPT/HCPCS: U0003; U0005

== ENCOUNTER → 2021-03-31 | Outpatient (CLI) | payer OTHER | LOC: LAB 09:34 | PROVIDERS: ATTEND Nurse Practitioner Family | DX: S21.102A Unspecified open wound of left front wall of thorax without penetration into thoracic cavity, initial encounter (principal); X58.XXXA Exposure to other specified factors, initial encounter; Y93.89 Activity, other specified; Y92.89 Other specified places as the place of occurrence of the external cause; Y99.8 Other external cause status | CPT/HCPCS: 87071; 87075; 87077; 87186 ==

== ENCOUNTER → 2021-06-23 | Outpatient (CLI) | payer OTHER ==
--- NOTE | 2021-06-23 14:38 | RAD ---
EXAM: AP and lateral views of the right knee. DATE: 06/23/2021 11:11 AM INDICATION: Reason: RIGHT KNEE PAIN / Spl. Instructions: / History: COMPARISON: No Prior FINDINGS: No acute fracture or dislocation. Moderate joint effusion. Small suprapatellar enthesophyte. Joint sp aces are preserved without significant degenerative/proliferative change. IMPRESSION: No acute fracture or dislocation. Moderate right knee joint effusion. Electronically signed by: Sadi Arteaga MD (06/23/2021 2:35 PM) [id number]
== END ==
LOC: RAD 10:34
PROVIDERS: ATTEND Nurse Practitioner
DX: G89.29 Other chronic pain (principal); M25.461 Effusion, right knee; M76.891 Other specified enthesopathies of right lower limb, excluding foot
CPT/HCPCS: 73560

== ENCOUNTER 2021-07-26 07:55 | Emergency (ER) | payer OTHER ==
[~2021-07-26] VITALS: Ht 182.9 cm; Wt 82.0 kg
[2021-07-26 08:23] VITALS: BP 166/96
--- NOTE | 2021-07-26 08:23 | PHYS DOC ---
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 Patient denied hit his head. Patient complained of left elbow pain, no wrist pain, no shoulder pain. Patient denies any hip or back pain. Patient is not on any blood thinner. Left elbow pain with flexion. Review of Systems: Review of Systems: Constitutional: Denies fever or chills. [] Eyes: Denies change in visual acuity. [] HENT: Denies nasal congestion or sore throat. [] Respiratory: Denies cough or shortness of breath. [] Cardiovascular: Denies chest pain or edema. [] GI: Denies abdominal pain, nausea, vomiting, bloody stools or diarrhea. [] : Denies dysuria. [] Musculoskeletal: Denies back pain, positive for left elbow pain Integument: Denies rash. [] Neurologic: Denies headache, focal weakness or sensory changes. [] Endocrine: Denies polyuria or polydipsia. [] Lymphatic: Denies swollen glands. [] Psychiatric: Denies depression or anxiety. [] Heart Score: C/O Chest Pain: N/A Risk Factors: Risk Factors: DM, Current or recent (<one month) smoker, HTN, HLP, family history of CAD, obesity. Risk Scores: Score 0 - 3: 2.5% MACE over next 6 weeks - Discharge Home Score 4 - 6: 20.3% MACE over next 6 weeks - Admit for Clinical Observation Score 7 - 10: 72.7% MACE over next 6 weeks - Early Invasive Strategies Allergies: Allergies: Allergies Coded Allergies Type Severity Reaction Last Updated Verified Iodinated Contrast Media Allergy Severe Anaphylaxis 06/22/20 Yes Physical Exam: PE: Constitutional: Well developed, well nourished, no acute distress, non-toxic appearance. [] HENT: Normocephalic, atraumatic, bilateral external ears normal, Eyes: PERRLA, EOMI, conjunctiva normal, no discharge. [] Skin: Warm, dry, no erythema, no rash. [] Extremities: No tenderness, no cyanosis, no clubbing, ROM intact, no edema. [] Neurologic: Alert and oriented X 3, normal motor function, normal sensory function, no focal deficits noted. [] Psychologic: Affect normal, judgement normal, mood normal. [] EKG: EKG: [] Radiology/Procedures: Radiology/Procedures: [][facility] [address] [place] [address] IMAGING REPORT Signed PATIENT: CONSTANZA NGUYEN ACCOUNT: [id number] : 1960 LOCATION: ER AGE: 60 SEX: M EXAM STATUS: REG ER ORD. PHYSICIAN: SYBIL TRINIDAD DO REASON: fell, left elbow injured PROCEDURE: ELBOW LEFT 3V Exam Date: 07/26/2021 8:25 AM XR ELBOW COMPLETE_LEFT 3+VIEWS Indication: Reason: fell, left elbow injured / Spl. Instructions: / History: . FINDINGS/ IMPRESSION: No acute fracture or dislocation. Alignment and joint spaces are maintained. The soft tissues are within normal limits. Electronically signed by: Maira Nolan MD (07/26/2021 9:12 AM) [id number] DICTATED and SIGNED BY: MAIRA NOLAN MD DATE: 07/26/21 [id number] 0 Course & Med Decision Making: Course & Med Decision Making Pertinent Labs and Imaging studies reviewed. (See chart for details) [] Dragon Disclaimer: Dragon Disclaimer: This electronic medical record was generated, in whole or in part, using a voice recognition dictation system. Departure Departure Impression: Primary Impression: Left elbow contusion Disposition: HOME / SELF CARE / HOMELESS Condition: STABLE Referrals: JEFFY MENDOZA MD (PCP) follow up with your doctor as needed Patient Instructions: Elbow Contusion Additional Instructions: Thank you for visiting our Emergency Department. We appreciate you trusting us w ith your care. If any additional problems come up don't hesitate to return to visit us. Please follow up with your primary care provider so they can plan additional care if needed and know about the problem that you had. If symptoms worsen come back to the Emergency Department. Any concerning symptoms that start such as chest pain, shortness of air, weakness or numbness on one side of the body, running high fevers or any other concerning symptoms return to the ER. SYBIL TRINIDAD DO Jul 26, 2021 08:23
--- NOTE | 2021-07-26 09:15 | RAD ---
Exam Date: 07/26/2021 8:25 AM XR ELBOW COMPLETE_LEFT 3+VIEWS Indication: Reason: fell, left elbow injured / Spl. Instructions: / History: . FINDINGS/ IMPRESSION: No acute fracture or dislocation. Alignment and joint spaces are maintained. The soft tissues are w ithin normal limits. Electronically signed by: Enrrique Nolan MD (07/26/2021 9:12 AM) [id number]
== END 2021-07-26 09:30 | disposition home or self-care (01) ==
LOC: ER 07:55
DX: S50.02XA Contusion of left elbow, initial encounter (principal); I10 Essential (primary) hypertension; E78.00 Pure hypercholesterolemia, unspecified; Z91.041 Radiographic dye allergy status; W00.0XXA Fall on same level due to ice and snow, initial encounter; Y93.01 Activity, walking, marching and hiking; Y92.89 Other specified places as the place of occurrence of the external cause; Y99.8 Other external cause status
CPT/HCPCS: 73080; 99283